=== PATIENT | male | born 1985 | race African-American/Black ===

== ENCOUNTER 2021-08-20 06:10 | Emergency (ER) | payer OTHER, SELFPAY ==
[2021-08-20] MEDS ORDERED: Naproxen 500 MG TAB ONE (08:06)
[2021-08-20 14:29] LABS: SARS-CoV-2 PCR by NAA DETECTED (NotDetected)
== END 2021-08-20 08:13 | disposition home or self-care (01) ==
LOC: ERS 06:10
DX: U07.1 COVID-19 (principal); J45.909 Unspecified asthma, uncomplicated; F17.210 Nicotine dependence, cigarettes, uncomplicated
CPT/HCPCS: 99284; U0003; U0005

== ENCOUNTER 2022-04-03 13:47 | Emergency (ER) | payer OTHER, SELFPAY ==
[2022-04-03] MEDS ORDERED: Dexameth. Sod Phosp. 10 MG/ML (CHEMO USE ONLY) ONE (14:40)
== END 2022-04-03 14:58 | disposition home or self-care (01) ==
LOC: ERS 13:47
DX: M70.42 Prepatellar bursitis, left knee (principal); F17.210 Nicotine dependence, cigarettes, uncomplicated
CPT/HCPCS: 87070; 87205; 99283; J1100

== ENCOUNTER 2022-05-05 09:32 | Emergency (ER) | payer SELFPAY | END 2022-05-05 10:43 | disposition home or self-care (01) | LOC: ERS 09:32 | DX: M70.42 Prepatellar bursitis, left knee (principal); F17.210 Nicotine dependence, cigarettes, uncomplicated; Z89.021 Acquired absence of right finger(s) | CPT/HCPCS: 99283 ==